=== PATIENT | male | born 1975 | race Caucasian/White ===

== ENCOUNTER 2018-11-11 06:43 | Outpatient (CLI) | payer BC ==
[2018-11-11 12:51] LABS: #Basophils 0.1 thou/uL (0.0-0.2); #Eosinphils 0.2 thou/uL (0.0-0.7); #Lymphocytes 2.9 thou/uL (1.20-3.40); #Monocytes 1.2 thou/uL (0.11-0.59); #Neutrophils 10.1 thou/uL (1.40-6.50); %Basophils 0.5 % (0.0-1.0); %Eosinophils 1.3 % (0.0-10.0); %Lymphocytes 19.9 % (21.0-51.0); %Neutrophils 70.3 % (42.0-75.0); Hemoglobin 16.1 g/dL (14.0-18.0); Mean Corpuscular HGB CONC 32.7 g/dL (32.0-36.0); Mean Corpuscular Hemoglobin 29.4 pg (27.0-31.0); Mean Platelet Volume 8.7 fL (7.4-10.4); Platelet Count 280 thou/uL (130-400); RBC Distribution Width 13.3 % (11.5-14.5); Red Blood Cell (RBC) Count 5.48 mill/uL (4.70-6.10); White Blood Cell (WBC) Count 14.4 thou/uL (4.8-10.8)
[2018-11-11 13:20] LABS: Anion Gap 12 mmol/L (10-20); BUN (Urea Nitrogen) 15 mg/dL (8.9-20.6); Calc. Creatinine Clearance 0 mL/min (70-130); Calcium 9.4 mg/dL (7.8-10.44); Carbon Dioxide 28 mmol/L (22-29); Chloride 104 mmol/L (98-107); Estimated GFR-MDRD 78; Glucose 127 mg/dL (70-105); Potassium 4.7 mmol/L (3.5-5.1); Sodium 139 mmol/L (136-145)
== END 2018-11-11 06:44 | disposition home or self-care (01) ==
LOC: LABBT 06:43
PROVIDERS: ATTEND Orthopaedic Surgery
DX: Z01.818 Encounter for other preprocedural examination (principal); G56.01 Carpal tunnel syndrome, right upper limb
CPT/HCPCS: 80048; 85025; 93005; 93010

== ENCOUNTER 2018-11-12 05:33 | Day surgery (SDC) | payer BC ==
--- NOTE | 2018-11-11 09:15 | HP ---
PRESENT ILLNESS: The patient is a 43-year-old male with several month history of pain and tingling in his right hand in the median nerve distribution. He has had no injury. He has had persistent symptoms despite rest, restriction of activities, using the brace and also use of Celebrex. He has had previous left carpal tunnel release 8-10 years ago and his current symptoms are almost identical. His symptoms are worse at night. PAST HISTORY: The patient has history of thyroid replacement, type 2 diabetes, hypertension, chronic back pain, depression, and anxiety. CURRENT MEDICATIONS: Include 1. Lasix. 2. Metoprolol. 3. Celebrex. 4. Montelukast. 5. Maxzide. 6. Nexium. 7. Potassium. 8. Levocetirizine. 9. Levothyroxine. 10. Citalopram. 11. Buspirone. 12. Metformin. 13. Aspirin 81 mg. 14. P.r.n. albuterol. 15. Lipitor. 16. Glipizide. 17. Soma p.r.n. ALLERGIC: Niaspan which causes severe flushing. 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 PHYSICAL EXAMINATION: GENERAL: A heavyset male. HEENT: Unremarkable. NECK: Supple. CHEST: Clear. HEART: Regular rate and rhythm. ABDOMEN: Soft, nontender. RECTAL AND GENITAL: Exams are deferred. EXTREMITIES: Pertinent findings in the right wrist. There is no swelling or atrophy. There are no wounds. There is no bony tenderness. There is questionable weakness of opposition of his right thumb. There is decreased sensation in a median nerve distribution. There is a positive Tinel sign and equivocal Phalen's test. Good distal pulses. DIAGNOSTIC DATA: Diagnostic studies were performed by Dr. Marley, reveal moderately severe right carpal tunnel syndrome. IMPRESSION: Right carpal tunnel syndrome. PLAN: Endoscopic possible open right carpal tunnel release. The nature of the surgery, length, recovery, and potential complications such as infection, loss of motion, incomplete relief, nerve injury, recurrence, need for additional treatment, repeat surgery were discussed in detail. Job ID: [id number]
[2018-11-11 11:55] VITALS: BMI 47.1
[2018-11-12] MEDS ORDERED: CEFAZOLIN 2 GM/50 ML BAG ONE (06:27)
[2018-11-12] MEDS ORDERED: Bupivacaine PF 0.5% 30 ML VIAL ONE (07:06)
[2018-11-12] MEDS ORDERED: Midazolam HCl 2 mg/2 ml Vial ONE (07:32)
[2018-11-12] MEDS ORDERED: Fentanyl 100 MCG/2 ML VIAL ONE (07:33)
[2018-11-12] MEDS ORDERED: Lidocaine 1% (PF) 30 ML VIAL ONE (07:44)
--- NOTE | 2018-11-12 10:25 | OP ---
DATE OF PROCEDURE: 11/12/2018 ANESTHESIA: Local with TIVA. PREOPERATIVE DIAGNOSIS: Right carpal tunnel syndrome. POSTOPERATIVE DIAGNOSIS: Right carpal tunnel syndrome. PROCEDURE PERFORMED: Right endoscopic carpal tunnel release. DESCRIPTION OF PROCEDURE: After satisfactory anesthesia was induced in supine position, the patient was prepped and draped in routine manner. A field block with 1% lidocaine approximately 15 mL was accomplished. The right arm was elevated and exsanguinated with an Esmarch bandage and then the tourniquet inflated to 250 mmHg. A 2 cm transverse incision was made in the proximal wrist flexion crease, carried down to the subcutaneous tissues. Bleeding points were controlled with Bovie cautery. Using sharp and blunt dissection, a distally based flap at deep forearm fascia was developed and retracted distally. Palmaris longus tendon was retracted radially. Proximal edge of the deep forearm fascia was split under direct visualization with small incision to make sure there was no proximal impingement of the median nerve. Synovial elevator was introduced beneath the transverse carpal ligament and the synovium cleared from the under surface. Carpal tunnel dilator was inserted. The Dynadmice endoscopic carpal tunnel system was introduced beneath the transverse carpal ligament in line with the ring finger. The distal edge of the ligament was easily identified and divided in a distal to proximal direction by pulling the trigger of the assembly and engaging the knife and withdrawing the scope proximally. This was done at several stages to make sure there was complete division of the transverse carpal ligament, which was documented with video printer. After withdrawing the scope, a carpal tunnel dilator could be inserted into the carpal tunnel and there was markedly improved passage and subcutaneous position of the instrument. The scope was reintroduced into the carpal tunnel. There was wide separation of the two leaves of the transverse carpal ligament. The scope was withdrawn. The tourniquet released after 6 minutes. There was no excessive bleeding. The wound was irrigated and closed with a running subcuticular 3-0 nylon. Sterile dressing was applied. The patient immobilized in a Velcro wrist splint. He was awakened, taken from the operating room in stable condition. There were no apparent intraoperative complications. The estimated blood loss was negligible. The patient will be discharged home in satisfactory condition with an ice elevation and given written care instructions. She was given prescription for [place] 5 for pain, 30 tablets. He will be rechecked in my office in approximately 2 weeks or sooner if there are any problems prior to that time. Job ID: [id number]
[2018-11-12] MEDS ORDERED: PROPOFOL 200 MG/20 ML VIAL ONE (10:36)
== END 2018-11-12 08:50 | disposition home or self-care (01) ==
LOC: SDC 05:33
PROVIDERS: ATTEND Orthopaedic Surgery
PROC: 01N54ZZ Release Median Nerve, Percutaneous Endoscopic Approach (ICD-10-PCS; principal; 2018-11-12)
DX: G56.01 Carpal tunnel syndrome, right upper limb (principal); E03.9 Hypothyroidism, unspecified; E11.9 Type 2 diabetes mellitus without complications; G89.29 Other chronic pain; M54.9 Dorsalgia, unspecified; F32.9 Major depressive disorder, single episode, unspecified; I10 Essential (primary) hypertension; F41.9 Anxiety disorder, unspecified; K21.9 Gastro-esophageal reflux disease without esophagitis; F17.210 Nicotine dependence, cigarettes, uncomplicated; Z79.82 Long term (current) use of aspirin; Z79.84 Long term (current) use of oral hypoglycemic drugs; Z79.899 Other long term (current) drug therapy; Z88.8 Allergy status to other drugs, medicaments and biological substances; Z98.890 Other specified postprocedural states
CPT/HCPCS: 36416; J2001; J2250; J2704; J3010; S0020

== ENCOUNTER 2018-11-25 09:36 | Outpatient (CLI) | payer BC ==
--- NOTE | 2018-11-25 11:32 | MRI ---
MRI LUMBAR SPINE WITHOUT CONTRAST: Technique: Multiplanar, multisequence MRI images were obtained of the lumbar spine. Indications: Intervertebral disc disorder with radiculopathy. Low back pain. FINDINGS: The lumbar vertebrae maintain normal height and alignment. There is mild loss of disc space at L2-3 a nd L3-4. Small nodes are seen involving both inferior and superior endplates at both of these levels. The other disc spaces are preserved. L1-2: No disc bulge or protrusion. Mild facet arthrosis. No central canal or foraminal stenosis. L2-3: Mild disc bulge. Mild facet arthrosis and hypertrophy. Mild central canal stenosis. Short pedic le distance exacerbates this mild stenosis. L3-4: Broad based disc bulge is more prominent. Mild facet hypertrophy. Epidural fat is present poste riorly. These changes result in mild to moderate central canal stenosis which again is exacerbated du e to short pedicle distance. L4-5: Broad based disc bulge. Facet hypertrophy is more prominent. Posterior epidural fat. Mild to mo derate central canal stenosis. Mild bilateral foraminal narrowing due to disc bulge and facet hypertr ophy. L5-S1: Mild disc bulge. Thecal sac is congenitially smaller. No significant central canal or foramina l stenosis. IMPRESSION: Short pedicle distance is seen. There is mild to moderate central canal stenosis of L2-3, L3-4, and L 4-5 as described above. POS: [facility]
== END 2018-11-25 09:37 | disposition home or self-care (01) ==
LOC: TBSIIMAG 09:36
PROVIDERS: ATTEND Specialist
DX: M51.16 Intervertebral disc disorders with radiculopathy, lumbar region (principal); M48.061 Spinal stenosis, lumbar region without neurogenic claudication; M48.07 Spinal stenosis, lumbosacral region
CPT/HCPCS: 72148

== ENCOUNTER 2019-08-23 16:41 | Emergency (ER) | payer BC ==
[2019-08-23] MEDS ORDERED: Ondansetron PF 4 MG/2 ML Vial ONE ×2 (16:45→16:55)
[2019-08-23] MEDS ORDERED: Ketorolac Tromethamine 30 MG/ML VIAL ONE (16:45)
[2019-08-23] MEDS ORDERED: Fentanyl 100 MCG/2 ML VIAL ONE (16:45)
[2019-08-23] MEDS ORDERED: Adacel (T-DAP) 0.5 ML SYRINGE ONE (16:55)
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
--- NOTE | 2019-08-23 17:18 | RAD ---
Exam: XR Elbow Rt 4 View STANDARD HISTORY: Limited mobility right elbow after trauma. COMPARISON: None FINDINGS: Small enthesophyte is seen at the olecranon process of the ulna. No acute fracture, dislocation, or other acute osseous abnormality is identified. IMPRESSION: No acute osseous abnormality is identified.
[2019-08-23] MEDS ORDERED: Nicotine 14 MG PATCH TOP SCH (18:00)
[2019-08-23] MEDS ORDERED: Nicotine 14 MG PATCH ONE (18:16)
== END 2019-08-23 18:23 | disposition home or self-care (01) ==
LOC: ERS 16:41
DX: S42.201A Unspecified fracture of upper end of right humerus, initial encounter for closed fracture (principal); E03.9 Hypothyroidism, unspecified; E78.00 Pure hypercholesterolemia, unspecified; F41.9 Anxiety disorder, unspecified; E11.9 Type 2 diabetes mellitus without complications; K21.9 Gastro-esophageal reflux disease without esophagitis; I10 Essential (primary) hypertension; F17.210 Nicotine dependence, cigarettes, uncomplicated; Z79.84 Long term (current) use of oral hypoglycemic drugs; Z79.899 Other long term (current) drug therapy; Z23 Encounter for immunization; V29.9XXA Motorcycle rider (driver) (passenger) injured in unspecified traffic accident, initial encounter
CPT/HCPCS: 90471; 90715; 96374; 96375; G0390; J1885; J2405; J3010

== ENCOUNTER 2019-08-25 15:20 | Outpatient (CLI) | payer BC ==
--- NOTE | 2019-08-25 16:59 | CT ---
CT RIGHT SHOULDER 08/25/19 PROVIDED CLINICAL HISTORY: Humerus fracture. FINDINGS: There is a comminuted fracture of the right proximal humerus with three main fracture fragments. Ther e is a transversely oriented fracture in the region of the surgical neck of the humerus with mild dis placement. Greater tuberosity and lesser tuberosity components are not significantly displaced. There is a fracture plane which separates the cranial and caudal halves of the humeral head articular surface at about the equator with displacement of the caudal fragment of the humeral head articular surface inferiorly into the region of the axillary recess. No additional fracture is evident. The visualized right lung field appears clear. Glenohumeral joint effusion is noted. IMPRESSION: Comminuted, displaced fracture of the right proximal humerus as described. POS: OFF
== END 2019-08-25 15:21 | disposition home or self-care (01) ==
LOC: SCSCT 15:20
PROVIDERS: ATTEND Orthopaedic Surgery
DX: S42.231A 3-part fracture of surgical neck of right humerus, initial encounter for closed fracture (principal)

== ENCOUNTER 2019-09-03 05:58 | Inpatient (IN) | payer BC ==
[2019-09-02 09:20] VITALS: BMI 44.9
[2019-09-03] MEDS ORDERED: Sodium Chloride 0.9% 100 ML ONE (06:14)
[2019-09-03] MEDS ORDERED: Tranexamic Acid 1,000 MG/10 ML VIAL ONE (06:14)
[2019-09-03 07:04] LABS: #Eosinphils 0.2 thou/uL (0.0-0.7); #Lymphocytes 2.4 thou/uL (1.20-3.40); #Neutrophils 9.1 thou/uL (1.40-6.50); %Basophils 0.3 % (0.0-1.0); %Eosinophils 1.2 % (0.0-10.0); %Lymphocytes 18.6 % (21.0-51.0); %Neutrophils 71.9 % (42.0-75.0); Hemoglobin 13.8 g/dL (14.0-18.0); Mean Corpuscular Hemoglobin 29.7 pg (27.0-31.0); Mean Corpuscular Volume 87.3 fL (78.0-98.0); Mean Platelet Volume 7.7 fL (7.4-10.4); Platelet Count 370 thou/uL (130-400); RBC Distribution Width 12.4 % (11.5-14.5); Red Blood Cell (RBC) Count 4.65 mill/uL (4.70-6.10); White Blood Cell (WBC) Count 12.7 thou/uL (4.8-10.8)
[2019-09-03] MEDS ORDERED: Clindamycin/D5W 900 mg/50 ml Premix Bag ONE (07:37)
[2019-09-03] MEDS ORDERED: Midazolam HCl 2 mg/2 ml Vial ONE (07:43)
[2019-09-03] MEDS ORDERED: Fentanyl 100 MCG/2 ML VIAL ONE ×2 (07:43→08:33)
[2019-09-03] MEDS ORDERED: HYDROcodone/Acetaminophen 10/325 mg Tablet PO PRN ×3 (08:48→12:19)
[2019-09-03] MEDS ORDERED: Fentanyl 100 MCG/2 ML VIAL IV PRN (08:48)
[2019-09-03] MEDS ORDERED: Ropivacaine 0.2% 550 ML 550 ML NERVE BLCK SCH (08:48)
[2019-09-03] MEDS ORDERED: Ketorolac Tromethamine 30 MG/ML VIAL IVP PRN (08:48)
[2019-09-03] MEDS ORDERED: Ondansetron PF 4 MG/2 ML Vial IVP PRN ×2 (08:48→12:19)
[2019-09-03] MEDS ORDERED: Promethazine HCl 25 MG/ML VIAL IM PRN (08:48)
[2019-09-03] MEDS ORDERED: Zolpidem Tartrate 5 MG TAB PO PRN ×2 (08:48→12:19)
[2019-09-03] MEDS ORDERED: traMADol HCl 50 MG TAB PO PRN ×4 (08:48→12:19)
[2019-09-03] MEDS ORDERED: Phenylephrine HCL 10 MG/ML VIAL ONE (09:51)
[2019-09-03] MEDS ORDERED: Ondansetron PF 4 MG/2 ML Vial ONE (10:43)
[2019-09-03] MEDS ORDERED: Ketorolac Tromethamine 30 MG/ML VIAL ONE (10:43)
[2019-09-03] MEDS ORDERED: Ropivacaine 0.2% HCl/PF (40 MG/20 ML VIAL) ONE (10:43)
[2019-09-03] MEDS ORDERED: Rocuronium Bromide 10 MG/ML (10ML VIAL) ONE (10:43)
[2019-09-03] MEDS ORDERED: PROPOFOL 200 MG/20 ML VIAL ONE (10:43)
[2019-09-03] MEDS ORDERED: Succinylcholine Chloride 20 MG/ML 10 ml SYRINGE FS ONE (10:43)
[2019-09-03] MEDS ORDERED: Ropivacaine 0.5% HCl/PF (150 MG/30 ML VIAL) ONE (10:43)
[2019-09-03] MEDS ORDERED: Lidocaine 1% PF 5 ML VIAL ONE (10:43)
[2019-09-03] MEDS ORDERED: Dexamethasone 20 MG/5 ML VIAL ONE (10:43)
[2019-09-03] MEDS ORDERED: ePHEDrine/0.9% NaCl/PF SYRINGE 50 mg/10 ml ONE (10:43)
[2019-09-03] MEDS ORDERED: Glycopyrrolate 0.2 MG/ML 5 ML SYRINGE ONE (10:43)
[2019-09-03] MEDS ORDERED: Promethazine HCl 25 MG/ML VIAL SLOW IVP PRN (10:53)
[2019-09-03] MEDS ORDERED: Meperidine HCl/PF 25 MG/ML VIAL SLOW IVP PRN (10:53)
[2019-09-03] MEDS ORDERED: HYDROmorphone 2 MG/ML VIAL SLOW IVP PRN (10:53)
[2019-09-03] MEDS ORDERED: Methocarbamol 500 MG TAB PO PRN (12:19)
[2019-09-03] MEDS ORDERED: Bisacodyl 10 MG SUPP PR PRN (12:19)
[2019-09-03] MEDS ORDERED: Milk Of Magnesia 30 ML UDCUP PO PRN (12:19)
[2019-09-03] MEDS ORDERED: Ondansetron ODT 4 MG TAB PO PRN (12:19)
[2019-09-03] MEDS ORDERED: diphenhydrAMINE 50 MG CAP PO PRN (12:19)
[2019-09-03] MEDS ORDERED: Methocarbamol 1 GM/10 ML VIAL SLOW IVP PRN (12:19)
[2019-09-03] MEDS ORDERED: Acetaminophen 325 MG TAB PO PRN (12:19)
[2019-09-03] MEDS ORDERED: Famotidine 20 MG TAB PO SCH ×2 (12:30→21:00)
--- NOTE | 2019-09-03 13:26 | RAD ---
Exam:Right shoulder to be HISTORY: Status post arthroplasty COMPARISON: None FINDINGS: Post surgical changes compatible with a right shoulder arthroplasty. Near anatomic alignmen t IMPRESSION: Findings compatible with right shoulder arthroplasty.
--- NOTE | 2019-09-03 13:56 | RAD ---
RIGHT SHOULDER TWO FLUOROSCOPIC VIEWS: INDICATION: Postop. COMPARISON: Prior exam dated 08/23/2019. FINDINGS: Since the comparison examination there is been interval placement of a left humeral prosthesis. The p rosthetic component projects in expected position. Total fluoroscopic time was 26.4 seconds. Total exposure was 4.0 mGy. IMPRESSION: Interval placement of a left humeral prosthesis. Transcribed Date/Time: 09/03/2019 2:11 PM
[2019-09-03] MEDS ORDERED: CEFAZOLIN 2 GM in Premix Bag 1 BAG IVPB SCH (14:00)
[2019-09-03] MEDS: Dextrose 5 %-0.45 % NaCl 1,000 ML IV SCH (14:18)
[2019-09-03] MEDS: CEFAZOLIN 2 GM in Premix Bag 1 BAG IVPB SCH (17:23)
[2019-09-03] MEDS ORDERED: Nicotine 21 MG PATCH TOP SCH (21:00)
[2019-09-03] MEDS: HYDROcodone/Acetaminophen 10/325 mg Tablet PO PRN (21:01)
[2019-09-03] MEDS ORDERED: busPIRone HCl 10 MG TAB PO SCH (21:45)
[2019-09-03] MEDS ORDERED: hydrOXYzine 25 MG TAB PO SCH (21:45)
[2019-09-03] MEDS: Ketorolac Tromethamine 30 MG/ML VIAL IVP PRN (22:06)
[2019-09-04] MEDS: CEFAZOLIN 2 GM in Premix Bag 1 BAG IVPB SCH (00:40)
[2019-09-04] MEDS: Dextrose 5 %-0.45 % NaCl 1,000 ML IV SCH (03:59)
[2019-09-04] MEDS ORDERED: SUMAtriptan Succinate 50 MG TAB PO PRN (07:55)
[2019-09-04] MEDS ORDERED: Potassium Chloride 20 MEQ TAB PO SCH (08:00)
[2019-09-04] MEDS ORDERED: Diazepam 5 MG TAB PO PRN (08:03)
[2019-09-04 08:08] VITALS: BP 144/78; TEMP 98.3
[2019-09-04] MEDS ORDERED: Levothyroxine Sodium 75 MCG TAB PO SCH (08:45)
[2019-09-04] MEDS ORDERED: Methocarbamol 500 MG TAB PO SCH (09:00)
[2019-09-04] MEDS ORDERED: Metoprolol Tartrate 50 MG TAB PO SCH (09:00)
[2019-09-04] MEDS ORDERED: Aspirin Chewable 81 MG TAB PO SCH (09:00)
[2019-09-04] MEDS ORDERED: Escitalopram Oxalate 20 mg Tablet PO SCH ×2 (09:00→21:00)
[2019-09-04] MEDS ORDERED: busPIRone HCl 10 MG TAB PO SCH (09:00)
[2019-09-04] MEDS ORDERED: Furosemide 40 MG TAB PO SCH (09:00)
[2019-09-04] MEDS ORDERED: CeleCOXIB 100 MG CAP PO SCH (09:00)
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
[2019-09-04] MEDS: Ketorolac Tromethamine 30 MG/ML VIAL IVP PRN (10:15)
[2019-09-04] MEDS: HYDROcodone/Acetaminophen 10/325 mg Tablet PO PRN (12:52)
[2019-09-04] MEDS ORDERED: Loratadine 10 MG TAB PO SCH (21:00)
[2019-09-04] MEDS ORDERED: Atorvastatin Calcium 40 MG TAB PO SCH (21:00)
[2019-09-04] MEDS ORDERED: hydrOXYzine 25 MG TAB PO SCH ×2 (21:00)
[2019-09-04] MEDS ORDERED: Montelukast Sodium 10 mg Tablet PO SCH (21:00)
[2019-09-05] MEDS ORDERED: Levothyroxine Sodium 75 MCG TAB PO SCH (06:00)
--- NOTE | 2019-09-06 14:16 | EKG ---
Test Reason : PREOP Blood Pressure : / mmHG Vent. Rate : 062 BPM Atrial Rate : 062 BPM P-R Int : 176 ms QRS Dur : 100 ms QT Int : 430 ms P-R-T Axes : 056 049 046 degrees QTc Int : 436 ms Normal sinus rhythm Normal ECG When compared with ECG of 11-NOV-2018 12:32, No significant change was found Confirmed by SHAHRAM KU (2) on 09/06/2019 2:16:39 PM Referred By: BIA Confirmed By:SHAHRAM KU
== END 2019-09-04 14:01 | disposition home or self-care (01) | DRG 483 ==
LOC: SURG A 05:58 → EDSTATUS 07:43 → SURG A 13:59
PROVIDERS: ADMIT Orthopaedic Surgery; ATTEND Orthopaedic Surgery
PROC: 0RRJ0J6 Replacement of Right Shoulder Joint with Synthetic Substitute, Humeral Surface, Open Approach (ICD-10-PCS; principal; 2019-09-03)
PROC: 0LS30ZZ Reposition Right Upper Arm Tendon, Open Approach (ICD-10-PCS; 2019-09-03)
DX: S42.231A 3-part fracture of surgical neck of right humerus, initial encounter for closed fracture (principal); V89.2XXA Person injured in unspecified motor-vehicle accident, traffic, initial encounter; E11.9 Type 2 diabetes mellitus without complications; E03.9 Hypothyroidism, unspecified; I10 Essential (primary) hypertension; K21.9 Gastro-esophageal reflux disease without esophagitis; F41.9 Anxiety disorder, unspecified; F32.9 Major depressive disorder, single episode, unspecified; G43.909 Migraine, unspecified, not intractable, without status migrainosus; E78.5 Hyperlipidemia, unspecified; F17.210 Nicotine dependence, cigarettes, uncomplicated; Z79.84 Long term (current) use of oral hypoglycemic drugs; Z79.51 Long term (current) use of inhaled steroids; Z79.82 Long term (current) use of aspirin; Z79.890 Hormone replacement therapy; Z79.899 Other long term (current) drug therapy; Z98.1 Arthrodesis status; Z90.49 Acquired absence of other specified parts of digestive tract
CPT/HCPCS: 36415; 76000; 85025; 93005; 93010; A4306; J0690; J1100; J1885; J2001; J2250; J2370; J2405; J2704; J2795; J3010; J3370; J3490; J7050

== ENCOUNTER 2020-02-17 19:10 | Observation (INO) | payer BC ==
[2020-02-17] MEDS ORDERED: Acetaminophen 325 MG TAB PO PRN ×2 (19:30→21:16)
[2020-02-17] MEDS ORDERED: Ondansetron PF 4 MG/2 ML Vial IVP PRN ×2 (19:30→21:16)
[2020-02-17] MEDS ORDERED: Ondansetron ODT 4 MG TAB SL PRN (19:30)
--- NOTE | 2020-02-17 19:32 | PDOC.HHP ---
Hospitalist HPI - History of Present Illness Accidental overdose History of Present Illness: Took whole bottle of glipizide accidentally. Blood sugar 70-150. Ate meal.
[2020-02-17] MEDS ORDERED: Dextrose 50% Abboject 50 ML SYRINGE SLOW IVP PRN (20:22)
[2020-02-17] MEDS ORDERED: Dextrose 5% in Water 1,000 ML IV PRN (20:22)
[2020-02-17] MEDS ORDERED: Dextrose 5 %-0.45 % NaCl 1,000 ML IV SCH ×2 (20:30→21:15)
[2020-02-17] MEDS ORDERED: Acetaminophen 650 MG Suppository PR PRN (21:16)
[2020-02-17] MEDS ORDERED: Ondansetron ODT 4 MG TAB PO PRN (21:16)
[2020-02-17] MEDS ORDERED: Nicotine 14 MG PATCH TD SCH (21:30)
[2020-02-17 21:39] VITALS: BMI 43.3
--- NOTE | 2020-02-17 23:24 | HP ---
TIME OF ASSESSMENT: 1999 CHIEF COMPLAINT: Accidental overdose of glipizide. HISTORY OF PRESENT ILLNESS: Mr. Scales is a 44-year-old gentleman with a known history of diabetes, who states he accidentally took a significant number of glipizide tablets. The patient states that his normally preps his daily medications, which are up to 15 tablets or more each day and puts them into a pill bottle. The patient apparently had this pill bottle sitting next to a bottle of glipizide tablets. The patient states he grabbed the wrong bottle when taking his medications and had put the bottle to his mouth all at once and only after swallowing all the tablets realized he had taken the bottle of glipizide rather than the bottle with his daily medications. The patient opted to come in immediately after realizing this. Denies feeling unwell. Denies any suicidal ideation and states that it was an accident. He was initially seen at a critical access hospital and then transferred here. He had been given charcoal prior to arrival. His glucose had dropped from 149 to 70. He was given D5 half-normal saline at 50 mL an hour with recommendations to continue to monitor his blood sugar. The patient again is asymptomatic. PAST MEDICAL HISTORY: 1. Obesity. 2. Tobacco use. 3. Hyperlipidemia. 4. Diabetes mellitus. 5. Hypertension. 6. Anxiety. PAST SURGICAL HISTORY: 1. Right shoulder replacement. 2. Neck fusion x2. 3. Cholecystectomy. SOCIAL HISTORY: The patient reports drinking alcohol socially. He smokes marijuana occasionally. He smokes 1.5 packs of cigarettes a day. ALLERGIES: 1. CHLOR-TRIMETON, UNKNOWN REACTION. 2. CHLORPHENIRAMINE, UNKNOWN REACTION. 3. NIACIN. 4. NIASPAN. CURRENT MEDICATIONS: 1. Glipizide. 2. Montelukast. 3. Celecoxib. 4. Escitalopram. 5. Sumatriptan. 6. Methocarbamol. 7. Aspirin. 8. Furosemide. 9. Levothyroxine. 10. Metoprolol. 11. Nexium. 12. Potassium chloride. 13. Levocetirizine. 14. Buspirone. 15. Triamterene/hydrochlorothiazide. 16. Atorvastatin. PHYSICAL EXAMINATION: GENERAL: The patient appears well developed, well nourished, is in no acute distress. VITAL SIGNS: Temperature 98.6, pulse 69, blood pressure 110/84, respirations 17 , O2 saturations 98% on room air. HEENT: Normocephalic and atraumatic. Pupils are equal, round, and reactive to light. Scleral icterus. Oropharynx is clear. NECK: Supple without lymphadenopathy. LUNGS: Clear to auscultation bilaterally. CARDIAC: Regular rate and rhythm. ABDOMEN: Soft, nontender, nondistended. Normoactive bowel sounds present. No guarding or rigidity. SKIN: Warm and dry. EXTREMITIES: No lower extremity swelling or edema. NEUROLOGIC: Alert and oriented x3. IMPRESSION AND PLAN: Mr. Scales is a 44-year-old man admitted for the followin. Accidental OD of glipizide. He took an unknown number of tablets, being admitted for close monitoring of his blood sugar. His glucose did drop significantly to 70 from 140s prior to arriving. He was placed on D5 half- normal saline and we will continue to monitor his blood glucose every 4 hours. The patient is currently asymptomatic. Per Dr. Junior, the D5 half-normal saline should be continued for at least 24 hours. 2. HTN. He has a history of hypertension and at this time, his blood pressure is on the lower side. We will continue to monitor. Hold antihypertensives for now. 3. Hypothyroidism. Resume home medications once verified. 4. Deep venous prophylaxis. The patient is ambulatory. 5. Code status full. Surrogate decision maker is his , Garima Scales. Case discussed with Dr. Junior, who agrees with plan of care as described above. Job ID: [id number] [facility]
[2020-02-18 05:24] LABS: #Basophils 0.1 thou/uL (0.0-0.2); #Eosinphils 0.2 thou/uL (0.0-0.7); #Lymphocytes 2.5 thou/uL (1.20-3.40); #Monocytes 0.8 thou/uL (0.11-0.59); #Neutrophils 5.5 thou/uL (1.40-6.50); %Basophils 0.7 % (0.0-1.0); %Eosinophils 2.6 % (0.0-10.0); %Lymphocytes 27.7 % (21.0-51.0); %Monocytes 8.5 % (0.0-10.0); %Neutrophils 60.5 % (42.0-75.0); Hemoglobin 13.9 g/dL (14.0-18.0); Mean Corpuscular HGB CONC 32.6 g/dL (32.0-36.0); Mean Corpuscular Hemoglobin 29.2 pg (27.0-31.0); Mean Corpuscular Volume 89.6 fL (78.0-98.0); Mean Platelet Volume 9.2 fL (7.4-10.4); Platelet Count 231 thou/uL (130-400); RBC Distribution Width 12.8 % (11.5-14.5); Red Blood Cell (RBC) Count 4.76 mill/uL (4.70-6.10); White Blood Cell (WBC) Count 9.1 thou/uL (4.8-10.8)
[2020-02-18 05:48] LABS: ALT (SGPT) 17 U/L (8-55); AST (SGOT) 14 U/L (5-34); Albumin 3.4 g/dL (3.5-5.0); Alkaline Phosphatase 88 U/L (40-110); Anion Gap 11 mmol/L (10-20); BUN (Urea Nitrogen) 10 mg/dL (8.9-20.6); Bilirubin, Total 0.2 mg/dL (0.2-1.2); Calc. Creatinine Clearance 233 mL/min (70-130); Calcium 8.4 mg/dL (7.8-10.44); Carbon Dioxide 28 mmol/L (22-29); Chloride 108 mmol/L (98-107); Estimated GFR-MDRD Greater than 90; Globulin 2.4 g/dL (2.4-3.5); Glucose 100 mg/dL (70-105); Potassium 3.8 mmol/L (3.5-5.1); Protein, Total 5.8 g/dL (6.0-8.3); Sodium 143 mmol/L (136-145)
[2020-02-18] MEDS ORDERED: Levothyroxine Sodium 75 MCG TAB PO SCH (06:00)
[2020-02-18] MEDS ORDERED: Aspirin Chewable 81 MG TAB PO SCH (09:00)
[2020-02-18] MEDS ORDERED: Potassium Chloride 20 MEQ TAB PO SCH (09:00)
[2020-02-18] MEDS ORDERED: Non-Formulary Item 1 EACH (Esomeprazole Magnesium [Nexium] 40 MG) PO SCH (09:00)
[2020-02-18] MEDS ORDERED: Atorvastatin Calcium 40 MG TAB PO SCH (09:00)
[2020-02-18] MEDS ORDERED: Escitalopram Oxalate 20 mg Tablet PO SCH (09:00)
[2020-02-18] MEDS ORDERED: Methocarbamol 500 MG TAB PO SCH (09:00)
[2020-02-18] MEDS ORDERED: SUMAtriptan Succinate 50 MG TAB PO PRN (09:00)
[2020-02-18] MEDS ORDERED: CeleCOXIB 100 MG CAP PO SCH (09:00)
[2020-02-18] MEDS: busPIRone HCl 10 MG TAB PO SCH ×2 (10:02→15:33)
[2020-02-18 15:34] VITALS: BP 137/87; TEMP 98.2
[2020-02-18] MEDS ORDERED: Non-Formulary Item 1 EACH (Levocetirizine Dihydrochloride [Levocetirizine Dihydrochloride PO SCH (21:00)
[2020-02-18] MEDS ORDERED: Loratadine 10 MG TAB PO SCH (21:00)
[2020-02-18] MEDS ORDERED: Montelukast Sodium 10 mg Tablet PO SCH (21:00)
--- NOTE | 2020-02-19 04:51 | DIS ---
DATE OF ADMISSION: 02/17/2020 DATE OF DISCHARGE: 02/18/2020 DISCHARGE DIAGNOSES: As of the followin. Accidental overdose with glipizide. 2. Obesity. 3. Hyperlipidemia. 4. Diabetes. 5. Hypertension. HOSPITAL COURSE: The patient is a 44-year-old male with a known history of diabetes who initially came into the hospital after accidentally taking around 15 tablets of the glipizide. Poison Control was notified and was asked to monitor the patient for about 24 hours. The patient has been doing well. He was initially put on D5 normal saline and was put on a diet. His sugars the lowest have been in in the 80s. His drip was turned off and he was monitored for a couple hours and he has been doing well. I did call Poison Control myself, who stated that since the patient had no hypoglycemia, he should be okay to be discharged. I also called the patient's to ask her, if this was a suicidal attempt, she denied. I asked the patient, the patient denied also, stated it was just an accident. I have advised the patient to stop taking the glipizide for the next couple of days to check his sugars more often, maybe every 4-6 hours while he is at home and of course return back, if anything changes. He is only on glipizide for his diabetes, nothing else. He will be discharged home. He will follow up with his primary. HOME MEDICATIONS: 1. Aspirin 81 mg daily. 2. Atorvastatin 40 mg daily. 3. I have told him to hold the glipizide for 2 days. 4. Buspirone 30 mg t.i.d. 5. Lexapro 20 mg daily. 6. Lasix 20 mg daily. 7. Levothyroxine 75 mcg daily. 8. Metoprolol 25 mg b.i.d. 9. Singulair 10 mg at bedtime. 10. Sumatriptan 10 mg p.o. daily. PHYSICAL EXAMINATION: VITAL SIGNS: Temperature 98.2, 69, 20, 98% on room air, 137/87. GENERAL: He is awake, alert, and oriented x3. Does not appear in distress CV: S1, S2 present. No murmurs, rubs, or gallops. ABDOMEN: Soft and nontender. Bowel sounds are present x2. Again he will be discharged home. He will follow up with his primary. Job ID: [id number]
== END 2020-02-18 18:29 | disposition home or self-care (01) ==
LOC: ERS 19:10 → T4-B 19:38 → MERGE 19:38
PROVIDERS: ADMIT Internal Medicine; ATTEND Internal Medicine
DX: T38.3X1A Poisoning by insulin and oral hypoglycemic [antidiabetic] drugs, accidental (unintentional), initial encounter (principal); E03.9 Hypothyroidism, unspecified; E11.9 Type 2 diabetes mellitus without complications; E78.5 Hyperlipidemia, unspecified; I10 Essential (primary) hypertension; F17.210 Nicotine dependence, cigarettes, uncomplicated; F41.9 Anxiety disorder, unspecified; E66.9 Obesity, unspecified; Z68.41 Body mass index [BMI] 40.0-44.9, adult; Z79.82 Long term (current) use of aspirin; Z79.899 Other long term (current) drug therapy; Z88.8 Allergy status to other drugs, medicaments and biological substances; Z79.84 Long term (current) use of oral hypoglycemic drugs
CPT/HCPCS: 36415; 36416; 80053; 83735; 85025; 96361; 99285; G0378

== ENCOUNTER 2020-12-30 19:30 | Outpatient (CLI) | payer BC | END 2020-12-30 19:31 | disposition home or self-care (01) | LOC: SLEEPLAB 19:30 | PROVIDERS: ATTEND Physician Assistant | DX: G47.33 Obstructive sleep apnea (adult) (pediatric) (principal); R53.83 Other fatigue; R06.83 Snoring; E66.9 Obesity, unspecified; F41.9 Anxiety disorder, unspecified; I10 Essential (primary) hypertension; F32.9 Major depressive disorder, single episode, unspecified; E11.9 Type 2 diabetes mellitus without complications; G47.00 Insomnia, unspecified; G47.52 REM sleep behavior disorder; R09.02 Hypoxemia; Z68.42 Body mass index [BMI] 45.0-49.9, adult | CPT/HCPCS: 95811 ==

== ENCOUNTER 2021-02-03 19:00 | Outpatient (CLI) | payer BC | END 2021-02-03 19:01 | disposition home or self-care (01) | LOC: SLEEPLAB 19:00 | PROVIDERS: ATTEND Physician Assistant | DX: G47.33 Obstructive sleep apnea (adult) (pediatric) (principal); R53.83 Other fatigue; E66.9 Obesity, unspecified; R06.83 Snoring; F41.9 Anxiety disorder, unspecified; I10 Essential (primary) hypertension; F32.9 Major depressive disorder, single episode, unspecified; E11.9 Type 2 diabetes mellitus without complications; G47.10 Hypersomnia, unspecified; Z68.42 Body mass index [BMI] 45.0-49.9, adult | CPT/HCPCS: 95811 ==

== ENCOUNTER 2021-09-19 11:45 | Emergency (ER) | payer BC ==
[2021-09-19] MEDS ORDERED: Boostrix 0.5 ML (Tdap) VIAL ONE (12:35)
[2021-09-19] MEDS ORDERED: Lidocaine 1% PF 5 ML VIAL ONE (13:27)
== END 2021-09-19 15:19 | disposition home or self-care (01) ==
LOC: ERS 11:45
DX: S61.213A Laceration without foreign body of left middle finger without damage to nail, initial encounter (principal); W26.8XXA Contact with other sharp object(s), not elsewhere classified, initial encounter; Z23 Encounter for immunization; I10 Essential (primary) hypertension; E11.9 Type 2 diabetes mellitus without complications; E78.00 Pure hypercholesterolemia, unspecified; K21.9 Gastro-esophageal reflux disease without esophagitis; E03.9 Hypothyroidism, unspecified; F17.210 Nicotine dependence, cigarettes, uncomplicated; Z79.899 Other long term (current) drug therapy
CPT/HCPCS: 12002; 90471; 90715

== ENCOUNTER 2021-10-20 14:08 | Outpatient (CLI) | payer BC | END 2021-10-20 14:09 | disposition home or self-care (01) | LOC: BICRAD 14:08 | PROVIDERS: ATTEND Family Medicine | DX: F17.200 Nicotine dependence, unspecified, uncomplicated (principal); J98.4 Other disorders of lung | CPT/HCPCS: 71046 ==

== ENCOUNTER 2021-10-26 10:02 | Outpatient (CLI) | payer BC | END 2021-10-26 10:03 | disposition home or self-care (01) | LOC: ULT 10:02 | PROVIDERS: ATTEND Physician Assistant | DX: R79.89 Other specified abnormal findings of blood chemistry (principal); R16.0 Hepatomegaly, not elsewhere classified; K76.0 Fatty (change of) liver, not elsewhere classified; Z90.49 Acquired absence of other specified parts of digestive tract | CPT/HCPCS: 76700 ==

== ENCOUNTER 2021-11-03 12:17 | Outpatient (CLI) | payer BC | END 2021-11-03 12:18 | disposition home or self-care (01) | LOC: ULT 12:17 | PROVIDERS: ATTEND Family Medicine | DX: I10 Essential (primary) hypertension (principal); I08.1 Rheumatic disorders of both mitral and tricuspid valves | CPT/HCPCS: 93306 ==

== ENCOUNTER 2022-06-18 18:04 | Emergency (ER) | payer BC | END 2022-06-18 20:40 | disposition home or self-care (01) | LOC: ERS 18:04 | DX: N64.4 Mastodynia (principal); I10 Essential (primary) hypertension; E78.00 Pure hypercholesterolemia, unspecified; E11.9 Type 2 diabetes mellitus without complications; K21.9 Gastro-esophageal reflux disease without esophagitis; E03.9 Hypothyroidism, unspecified; F17.210 Nicotine dependence, cigarettes, uncomplicated; Z79.899 Other long term (current) drug therapy | CPT/HCPCS: 99283 ==

== ENCOUNTER 2023-06-12 18:06 | Emergency (ER) | payer BC ==
[2023-06-12 18:58] LABS: #Basophils 0.1 thou/uL (0.0-0.2); #Eosinphils 0.2 thou/uL (0.0-0.7); #Monocytes 1.1 thou/uL (0.11-0.59); #Neutrophils 11.5 thou/uL (1.40-6.50); %Basophils 0.7 % (0.0-1.0); %Eosinophils 1.4 % (0.0-10.0); %Monocytes 6.9 % (0.0-10.0); %Neutrophils 73.5 % (42.0-75.0); Hemoglobin 17.2 g/dL (14.0-18.0); Mean Corpuscular HGB CONC 34.4 g/dL (32.0-36.0); Mean Corpuscular Hemoglobin 31.6 pg (27.0-31.0); Mean Corpuscular Volume 91.7 fl (78.0-98.0); Mean Platelet Volume 10.4 fL (7.4-10.4); Platelet Count 331 10x3/uL (130-400); RBC Distribution Width 13.1 % (11.5-14.5); Red Blood Cell (RBC) Count 5.45 mill/uL (4.70-6.10); White Blood Cell (WBC) Count 15.6 10x3/uL (4.8-10.8)
[2023-06-12 19:25] LABS: ALT (SGPT) 49 U/L (8-55); AST (SGOT) 38 U/L (5-34); Alkaline Phosphatase 112 U/L (40-110); Anion Gap 15 mmol/L (10-20); BUN (Urea Nitrogen) 11 mg/dL (8.9-20.6); Bilirubin, Total 0.6 mg/dL (0.2-1.2); Calc. Creatinine Clearance 0 mL/min (70-130); Calcium 9.8 mg/dL (7.8-10.44); Carbon Dioxide 27 mmol/L (22-29); Chloride 100 mmol/L (98-107); Estimated GFR 78; Globulin 3.7 g/dL (2.4-3.5); Glucose 216 mg/dL (70-105); Potassium 4.2 mmol/L (3.5-5.1); Protein, Total 7.7 g/dL (6.0-8.3); Sodium 138 mmol/L (136-145)
[2023-06-12 19:58] LABS: Bacteria/HPF None Seen HPF (None Seen); Bilirubin Negative (Negative); Blood, Urine Negative (Negative); CAUTI Indications for Culture Dysuria,urgency,freq; Clarity Clear (Clear); Glucose, Urine (Dipstick) Greater than 1000 mg/dL (Negative); Ketone, Urine Negative (Negative); Leukocyte Negative Leu/uL (Negative); Nitrite Negative (Negative); Protein, Urine (Dipstick) Negative (Neg-Trace); RBC/HPF 0-3 HPF (0-3); Specific Gravity, Urine 1.013 (1.002-1.036); Squamous Epithelial None Seen HPF (0-3); Urobilinogen Normal mg/dL (Less than 2); WBC/HPF None Seen HPF (0-3)
[2023-06-12 20:00] LABS: Urine Culture Reflex No No
[2023-06-12] MEDS ORDERED: Ketorolac Tromethamine 30 MG/ML VIAL ONE (20:45)
== END 2023-06-12 21:07 | disposition home or self-care (01) ==
LOC: ERS 18:06
DX: R10.9 Unspecified abdominal pain (principal); I10 Essential (primary) hypertension; E78.00 Pure hypercholesterolemia, unspecified; E11.9 Type 2 diabetes mellitus without complications; K21.9 Gastro-esophageal reflux disease without esophagitis; F17.210 Nicotine dependence, cigarettes, uncomplicated; Z79.899 Other long term (current) drug therapy
CPT/HCPCS: 36415; 74176; 80053; 81001; 83690; 85025; 96372; J1885

== ENCOUNTER 2023-06-18 12:24 | Outpatient (CLI) | payer BC | END 2023-06-18 12:25 | disposition home or self-care (01) | LOC: RAD 12:24 | PROVIDERS: ATTEND Nurse Practitioner Family | DX: M47.26 Other spondylosis with radiculopathy, lumbar region (principal); M51.16 Intervertebral disc disorders with radiculopathy, lumbar region | CPT/HCPCS: 72100 ==